=== PATIENT | female | born 1965 | race Caucasian/White ===

== ENCOUNTER 2017-03-15 06:18 | Day surgery (SDC) | payer BC ==
--- NOTE | 2017-03-14 20:16 | Pre-op HX & Phy Repo 2 SIG ---
DATE OF ADMISSION: 03/15/2017 DATE OF SURGERY: 03/20/2017 PREOPERATIVE DIAGNOSIS: Stage IV macular hole, left eye. BRIEF NOTE: This is a second [place] admission for this patient who is a very nice 51-year-old lady, who underwent retinal detachment repair in the right eye over 20 years ago. She has done well. She has subsequently developed cataracts in both eyes and underwent a Yag capsulotomy in the left. Sometime after this, she was found to have a macular hole, full-thickness on the left eye and is admitted for surgery. PAST MEDICAL HISTORY: According to the patient is negative. ALLERGIES: She has a penicillin allergy. MEDICATIONS: She takes no other medications. PHYSICAL EXAMINATION: Best vision at the time of admission was 20/40, -2 in the right eye and 20/100 in the left with pressures of 14 and 15. The anterior segments showed posterior chamber lenses with open capsulotomies bilaterally. Fundus exam of the right eye showed an optic disk myopic crescent. There was a peripheral scleral buckle with scattered cryolesions. The left fundus showed a full-thickness stage IV macular hole. 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 The retina was all attached. There was an obvious myopic disk crescent on that side. ASSESSMENT: 1. Stage IV macular hole, left eye. 2. Myopia, both eyes. 3. Status post retinal detachment repair, right eye. 4. Pseudophakia, both eyes. PLAN: The plan is to perform a pars plana vitrectomy with ILM peeling consistent with ICG dye. Peripheral prophylactically laser will be done at the areas of suspicious lattice degeneration. Gas fluid exchange will also be performed. The risks and benefits of the surgery have gone over with the patient including potential infection, hemorrhage, failure of the hole to close with single operation, recurrent detachment, and potentially loss of the eye. The risk of anesthesia was discussed. The patient understands and consents to the surgery, which will be performed on tomorrow morning. Abdi Woo M.D. DR: BLANQUITA JOB#: [id number] CC:
[2017-03-15] VITALS (10 sets, daily range): BP systolic 84–111; BP diastolic 44–68
[~2017-03-15] VITALS: Ht 172.7 cm; Wt 64.9 kg
--- NOTE | 2017-03-15 06:17 | Pre-Procedure Note/Attestation ---
Pre-Procedure Note/Attestation Complete Prior to Procedure Planned Procedure: left Procedure Narrative: PPV, ICG assisted membrane peel, endolaser, gas-fluid exchange Left eye Indications for Procedure Pre-Operative Diagnosis: Stage IV macular hole left eye Attestation I attest that I discussed the nature of the procedure; its benefits; risks and complications; and alternatives (and the risks and benefits of such alternatives ), prior to the procedure, with the patient (or the patient's legal telephone claims representative). I attest that, if there was a reasonable possibility of needing a blood transfusion, the patient (or the patient's legal telephone claims representative) was given the [facility] standardized written summary, pursuant to the Francis Jonathan Blood Safety Act ([place] Health and Safety Code # 1645, as amended). I attest that I re-evaluated the patient just prior to the surgery and that there has been no change in the patient's H&P, except as documented below: SOPHY SHEARER Mar 15, 2017 06:17
[~2017-03-15 06:18] MED LIST: Indocyanine Green 25mg Inj INJ ONE; NKM; Pred Forte 1% Opth Susp 1ml LEFT EYE SCH
[2017-03-15] MEDS ORDERED: Ketorolac 30mg Inj IV ONE (06:30)
[2017-03-15] MEDS ORDERED: Vigamox Opth Soln 3ml ONE (07:18)
[2017-03-15] MEDS ORDERED: Cyclopentolate 1% Opth Sol 2ml ONE (07:19)
[2017-03-15] MEDS ORDERED: Phenylephrine 2.5% Op 2ml Soln ONE (07:19)
[2017-03-15] MEDS ORDERED: Flurbiprofen 0.03% Opth Sol 2.5ml ONE (07:19)
[2017-03-15] MEDS ORDERED: MULTIVITAMINS1 EAC2 ORAL (07:28)
[2017-03-15] MEDS: Vigamox Opth Soln 3ml LEFT EYE SCH ×3 (07:50→08:10)
[2017-03-15] MEDS: Cyclopentolate 1% Opth Sol 2ml LEFT EYE SCH ×3 (07:50→08:10)
[2017-03-15] MEDS: Flurbiprofen 0.03% Opth Sol 2.5ml LEFT EYE SCH ×3 (07:50→08:10)
[2017-03-15] MEDS: Phenylephrine 2.5% Op 2ml Soln LEFT EYE SCH ×3 (07:50→08:10)
[2017-03-15] MEDS ORDERED: Indocyanine Green 25mg Inj INJ ONE (08:00)
[2017-03-15 08:06] LABS: BASOPHILS % (AUTO) 0.9 % (0.0-2.0); EOSINOPHILS % (AUTO) 7.8 % (0.0-3.0); MEAN CORPUSCULAR HEMOGLOBIN 29.2 PG (27.0-31.0); MEAN CORPUSCULAR HGB CONC 31.6 G/DL (32.0-36.0); MEAN CORPUSCULAR VOLUME 92 FL (80-99); MEAN PLATELET VOLUME 9.5 FL (6.5-10.1); MONOCYTES % (AUTO) 5.3 % (1.0-10.0); NEUTROPHILS % (AUTO) 55.1 % (45.0-75.0); PLATELET COUNT 167 K/UL (150-450); RED BLOOD COUNT 4.21 M/UL (4.20-5.40); RED CELL DISTRIBUTION WIDTH 10.9 % (11.6-14.8); WHITE BLOOD COUNT 6.5 K/UL (4.8-10.8)
[2017-03-15 08:11] LABS: ANION GAP 5 mmol/L (5-15); CALCIUM 9.1 MG/DL (8.5-10.1); CARBON DIOXIDE 29 MMOL/L (21-32); CHLORIDE 105 MMOL/L (98-107); GLOMERULAR FILTRATION RATE 58.5 mL/min (>60); POTASSIUM 3.9 MMOL/L (3.5-5.1); SODIUM 139 MMOL/L (136-145)
[2017-03-15] MEDS ORDERED: fentaNYL 100 mcg/2 mL IV ONE (09:00)
[2017-03-15] MEDS ORDERED: Midazolam 2mg/2ml Inj ONE (09:00)
[2017-03-15] MEDS ORDERED: Propofol 200mg/20ml IV ONE (09:00)
[2017-03-15] MEDS ORDERED: LR 1000ml ONE (09:00)
[2017-03-15] MEDS ORDERED: Sodium Hyaluronate 10 mg/ml 0.85ml ONE (09:02)
[2017-03-15] MEDS ORDERED: Povidone-Iodine 5% opth solution ONE (09:02)
[2017-03-15] MEDS ORDERED: Bupivacaine 0.75% 30ml vial INJ ONE (09:03)
[2017-03-15] MEDS ORDERED: Lidocaine 2% MPF 5ml Vial INJ ONE (09:03)
[2017-03-15] MEDS ORDERED: LR 1000ml 1,000 ML IVLG SCH (09:57)
--- NOTE | 2017-03-15 09:57 | Anethesia Preoperative Eval ---
Anesthesia Pre-op PMH/ROS General Date of Evaluation: Mar 15, 2017 Time of Evaluation: 09:08 Anesthesiologist: Mya ASA Score: ASA 2 Mallampati Score Class I : Soft palate, uvula, fauces, pillars visible Class II: Soft palate, uvula, fauces visible Class III: Soft palate, base of uvula visible Class IV: Only hard plate visible Mallampati Classification: Class II Surgeon: Chilo Diagnosis: L eye macular hole Surgical Procedure: L eye PPV Anesthesia History: none Family History: no anesthesia problems Allergies: Coded Allergies: PENICILLINS (Verified Allergy, Severe, unk, 04/15/14) Uncoded Allergies: sulfa (Allergy, Severe, rashes, 04/15/14) Past Medical History Cardiovascular: Denies: HTN, CAD, OK, valve dz, arrhythmia, other Pulmonary: Denies: asthma, COPD, BASIL, other Gastrointestinal/Genitourinary: Reports: GERD - mild, Denies: CRI, ESRD, other Neurologic/Psychiatric: Denies: dementia, CVA, depression/anxiety, TIA, other Endocrine: Denies: DM, hypothyroidism, steroids, other HEENT: Reports: cataract (L), cataract (R) - s/p Sx, Denies: glaucoma, ANGOON (L), ANGOON (R), other Hematology/Immune: Denies: anemia, DVT, bleeding disorder, other Musculoskeletal/Integumentary: Denies: OA, RA, DJD, DDD, edema, other PMH Narrative: as above PSxH Narrative: bilateral cataracts Anesthesia Pre-op Phys. Exam Physician Exam Last Vital Signs Date Time Temp Pulse Resp B/P (MAP) Pulse Ox O2 Delivery O2 Flow Rate FiO2 03/15/17 08:00 98.5 50 20 111/68 100 Room Air Constitutional: NAD Neurologic: CN 2-12 intact Cardiovascular: RRR, no M/R/G Respiratory: CTA Gastrointestinal: S/NT/ND Airway Exam Mallampati Score: Class II MO: full Neck: flexible ROM: full Teeth: intact Dentures: no upper, no lower Anesthesia Pre-op A/P Labs Hematology Test 03/15/17 07:45 White Blood Count 6.5 K/UL (4.8-10.8) Red Blood Count 4.21 M/UL (4.20-5.40) Hemoglobin 12.3 G/DL (12.0-16.0) Hematocrit 38.9 % (37.0-47.0) Mean Corpuscular Volume 92 FL (80-99) Mean Corpuscular Hemoglobin 29.2 PG (27.0-31.0) Mean Corpuscular Hemoglobin Concent 31.6 G/DL (32.0-36.0) L Red Cell Distribution Width 10.9 % (11.6-14.8) L Platelet Count 167 K/UL (150-450) Mean Platelet Volume 9.5 FL (6.5-10.1) Neutrophils (%) (Auto) 55.1 % (45.0-75.0) Lymphocytes (%) (Auto) 31.0 % (20.0-45.0) Monocytes (%) (Auto) 5.3 % (1.0-10.0) Eosinophils (%) (Auto) 7.8 % (0.0-3.0) H Basophils (%) (Auto) 0.9 % (0.0-2.0) Chemistry Test 03/15/17 07:45 Sodium Level 139 MMOL/L (136-145) Potassium Level 3.9 MMOL/L (3.5-5.1) Chloride Level 105 MMOL/L (98-107) Carbon Dioxide Level 29 MMOL/L (21-32) Anion Gap 5 mmol/L (5-15) Blood Urea Nitrogen 26 mg/dL (7-18) H Creatinine 1.0 MG/DL (0.55-1.30) Estimat Glomerular Filtration Rate 58.5 mL/min (>60) Glucose Level 94 MG/DL (74-106) Calcium Level 9.1 MG/DL (8.5-10.1) Urine Test Test 03/15/17 06:40 Urine HCG, Qualitative Negative Studies Pre-op Studies: EKG - NSR Risk Assessment & Plan Assessment: ASA 2 Plan: GA with LMA surgeon request Status Change Before Surgery: No Pre-Antibiotics Drug: none LUCRECIA LEZAMA M.D. Mar 15, 2017 09:57
[2017-03-15] MEDS ORDERED: fentaNYL 100 mcg/2 mL IV PRN (10:00)
[2017-03-15] MEDS ORDERED: Metoclopramide 10mg/2ml Inj IVP PRN (10:00)
[2017-03-15] MEDS ORDERED: DiphenhydrAMINE 50mg/ml Inj IVP PRN (10:00)
--- NOTE | 2017-03-15 10:38 | Brief Operative Note ---
Immediate Post Operative Note Operative Note Chief Complaint: Blurred central vision Left eye Pre-op Diagnosis: Stage IV macular hole left eye Procedure: Pars plan vitrectomy, endolaser (411 spots), ICG assisted membrane peel, gas- fluid exchange (25% SF-6) OS Post-op Diagnosis: same as pre-op plus - Peripheral lattice degeneration L eye Surgeon: Chilo Snipper: none Anesthesiologist: Mya Anesthesia: general Specimen: none Complications: none Condition: stable Fluids: per Dr Roque Estimated Blood Loss: none Drains: none Implant(s) used?: No SOPHY SHEARER Mar 15, 2017 10:38
--- NOTE | 2017-03-15 10:40 | Immediate Post-Op Evaluation ---
Immediate Post-Op Evalulation Immediate Post-Op Evalulation Procedure: L eye PPV membrane peel laser treatment, fluid to gas exchange Date of Evaluation: Mar 15, 2017 Time of Evaluation: 10:39 IV Fluids: 800 Blood Products: none Estimated Blood Loss: min Urinary Output: none Blood Pressure Systolic: 97 Blood Pressure Diastolic: 48 Pulse Rate: 57 Respiratory Rate: 20 O2 Sat by Pulse Oximetry: 99 Temperature (Fahrenheit): 97.9 Pain Score (1-10): 1 Nausea: No Vomiting: No Complications none Patient Status: reacts, patent, none Hydration Status: adequate LUCRECIA LEZAMA M.D. Mar 15, 2017 10:40
[2017-03-15] MEDS ORDERED: Maxitrol Opth Oint 3.5gm ONE (11:14)
[2017-03-15] MEDS ORDERED: BSS 500ml btl ONE (11:14)
[2017-03-15] MEDS ORDERED: Dexamethasone 4mg/ml vial ONE (11:14)
[2017-03-15] MEDS ORDERED: Tetracaine 0.5% Opth 4ml Soln ONE (11:14)
[2017-03-15] MEDS ORDERED: EPINEPHrine 1mg/1ml Amp ONE (11:15)
[2017-03-15] MEDS ORDERED: BSS 15ml BTL ONE (11:15)
--- NOTE | 2017-03-15 11:19 | 48 Hour Post Anesthesia Eval ---
Post Anesthesia Evaluation Procedure: L eye PPV membrane peel laser treatment, fluid to gas exchange Date of Evaluation: Mar 15, 2017 Time of Evaluation: 11:18 Blood Pressure Systolic: 99 0: 52 Pulse Rate: 66 Respiratory Rate: 20 Temperature (Fahrenheit): 97.6 O2 Sat by Pulse Oximetry: 99 Airway: patent Nausea: No Vomiting: No Pain Intensity: 1 Hydration Status: adequate Cardiopulmonary Status: stable Mental Status/LOC: patient returned to baseline Follow-up Care/Observations: n/a Post-Anesthesia Complications: none Follow-up care needed: ready to discharge LUCRECIA LEZAMA M.D. Mar 15, 2017 11:19
[2017-03-15] MEDS ORDERED: Norco 5mg/325mg tab ORAL PRN (16:01)
--- NOTE | 2017-03-15 16:15 | Operative Note - Dictated ---
DATE OF OPERATION: 03/15/2017 PREOPERATIVE DIAGNOSIS: Stage IV macular hole, left eye with peripheral lattice degeneration. POSTOPERATIVE DIAGNOSIS: Stage IV macular hole, left eye with peripheral lattice degeneration. PROCEDURES: 1. Pars plana vitrectomy. 2. ICG assisted membrane and ILM peel. 3. Peripheral laser prophylaxis. 4. Gas fluid exchange, left eye. SURGEON: Abdi Woo M.D. VALVE REPAIRER RECLAMATION: None. ANESTHESIA: LMA general. ANESTHESIOLOGIST: Cyril Roque M.D. JUSTIFICATION FOR SURGERY: This is a 51-year-old lady with a history of retinal detachment in the right eye and a cataract surgery bilaterally developed decreased central vision and was found to have a stage IV macular hole central in the left eye. 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 BRIEF NOTE: The patient was brought to the operative room and placed on operating room table in supine position. After a time-out was performed and agreed upon by the staff, general LMA anesthesia was induced by Dr. Roque. A 3 mL retrobulbar injection was given at this time to limit necessary anesthetic and the postoperative pain. She was then prepped and draped in the normal manner. A lid speculum was inserted into the left eye. Using a 23-gauge trocar system, cannulas were placed in all except infranasal quadrant. Infusion secured inferotemporally. Vitrectomy was begun posterior to the lens removing adherent vitreous from the posterior capsule. The vitrectomy was carried further peripherally leaving a small vitreous skirt. The posterior hyaloid had previously elevated and this was removed. Scleral depression was done and showed a band of lattice temporally and inferiorly. The endolaser was brought into the eye at a power of 0.3 tripathi and duration of 0.2 seconds. These areas of lattice were gently re-enforced with laser. No addie retinal tears were seen. A posterior viewing lens was then inserted and focus of attention was made on the posterior pole. The stage IV hole was seen. A single drop of ICG dye was used to stain the internal limiting lamina. Using intra-ocular forceps, an area roughly 3 disc diameters in size was removed from the posterior pole including the macular hole. No problems at all were encountered. All of the ICG and the membrane remnants were flushed from the eye. At this juncture, an air-fluid exchange was performed followed by a gas exchange using 24% SF6 gas. The eye was left normotensive and the superior cannulas were removed. These were closed with 8-0 Vicryl suture. Infusion cannula was also removed and this wound was closed with 8-0 Vicryl suture as well. Subconjunctival Decadron and gentamicin were then injected inferiorly and Maxitrol and atropine ointments were instilled. The eye was patched and shielded and the patient was taken to recovery in excellent condition. There were no complications. Abdi Woo M.D. DR: JOSE JOB#: [id number] CC: Abdi Woo M.D.; Fax#: [phone]
--- NOTE | 2017-03-16 11:00 | Cardiology Report ---
APPROVED REPORT EKG Measurement Heart [id number] Sinus bradycardia Otherwise normal ECG
--- NOTE | 2017-03-24 21:47 | Pre-op HX & Phy Repo 2 SIG ---
DATE OF ADMISSION: 03/15/2017 NOTE: POOR AUDIO QUALITY PRESURGICAL INTERNAL MEDICINE HISTORY AND PHYSICAL REASON FOR EVALUATION: I was asked by Dr. Abdi oWo to see this 51-year-old female who is going for elective surgery on the left eye. The patient has a macular hole in the left eye. Please see full description by Dr. Abdi Woo. The patient was evaluated. Chart was reviewed. PAST MEDICAL HISTORY/REVIEW OF SYSTEMS: Denies history of chest pain, palpitation, or heart attack. Denies history of respiratory problem, asthma, or bronchitis. No history of GI bleeding, ulcer disease, heartburn, or hepatitis. No history of diabetes or thyroid problem. Denies history of renal insufficiency. No hypertension or stroke. The patient denies recent weight loss or . PAST SURGICAL HISTORY: Cataract. PRESENT MEDICATIONS: The patient takes vitamins supplements. ALLERGIES: Not known. FAMILY HISTORY: Father at the age of 32. Mother is alive, has arthritis. HABITS: Nonsmoker. Occasional alcohol. No street drugs. PHYSICAL EXAMINATION: GENERAL: The patient is alert, well-developed, well-nourished female, in her 50s, in no acute distress. VITAL SIGNS: Blood pressure 111/68, temperature 98.5, pulse 55, and O2 saturation 99% on room air. HEENT: Head, normocephalic and atraumatic. Ears, clear. Eyes, full description per Dr. Abdi Woo. Mouth, clear and moist. No dentures. SKIN: Dry, clear. No rashes. . NECK: Supple. No jugular vein distention. Carotids artery +2. Trachea midline. CHEST: No deformity or asymmetry. LUNGS: Clear to auscultation and percussion. No rales or rhonchi. HEART: No cardiomegaly. Heart sounds clear. No murmur. No ectopy. No S3 or S4. ABDOMEN: Soft and benign. Liver and spleen not enlarged. No rebound. EXTREMITIES: No peripheral edema. No varicose veins. No calf tenderness. No deformities. GENITOURINARY TRACT: Denies dysuria. No CVA tenderness. NEUROLOGIC: No tremor. No nystagmus. No asymmetry. LABORATORY AND DIAGNOSTIC DATA: IMPRESSION: PLAN: Pars plana vitrectomy, 23 G membrane peeling, left eye per Dr. Abdi Woo. CONCLUSION: The patient is a 51-year-old female, healthy. . The patient's vital signs are stable mild bradycardia. did not eat or drink from last night. The patient's condition optimized for surgery. Thank you very much, Dr. Woo, for the privilege to participate in the presurgical care of this interesting patient. Luba Frye M.D. DR: REUBEN JOB#: [id number] CC:
== END 2017-03-15 12:30 | disposition home or self-care (01) ==
LOC: SUR 06:18
DX: H35.342 Macular cyst, hole, or pseudohole, left eye (principal); K21.9 Gastro-esophageal reflux disease without esophagitis; H52.13 Myopia, bilateral; Z96.1 Presence of intraocular lens; Z88.0 Allergy status to penicillin; Z88.2 Allergy status to sulfonamides
CPT/HCPCS: 36415; 67042; 80048; 81025; 85025; 93005; J0171; J1100; J2250; J2405; J2704; J3010; J3470; J3490; J7120; 94003; 94150